=== PATIENT | female | born 1960 | race Caucasian/White ===

== ENCOUNTER → 2019-07-25 | Day surgery (SDC) | payer BC, OTHER ==
[~2019-07-25] MED LIST: CALCIUM + D3 PO; EVENING PRIMROSE OIL PO; FENTANYL CITRATE/PF 100MCG/2 ML INJ ONE; FLAXSEED OIL PO; LIDOCAINE HCL 2% LOCAL INJ 5 ML SDV VIAL INJ ONE; LISINOPRIL10 MG PO; LOSARTAN-HCTZ1 EACH PO; OSTEO BI-FLEX1 EAC2 PO; PANTOPRAZOLE SO40 MG PO; PROPOFOL IV EMULSION 10 MG/ML 50 ML VIAL ONE; TUMERIC PO; VITAMIN B-125000 MCG PO; VITAMIN D-3 PO; VITAMIN E1000 UNI2 PO; ZANTAC150 MG PEG; ZYRTEC10 M3 PO
--- OUTSIDE RECORDS SUMMARY | 2019-07-25 11:03 | XMS REPORT | Clinical Summary ---
Author Author [facility] Address Unknown Phone Unavailable Care Team Providers Care Food Service Tray Attendant Name Role Phone Aliya Soliz MD PCP Allergies Comments Active Allergy Reactions Severity Noted Date Codeine 12/28/2017 Sulfa (Sulfonamide 02/02/2017 Antibiotics) Medications End Date Status Medication Sig Dispensed Refills Start Date Active lisinopril TK 1 T PO D 0 (PRINIVIL,ZESTRIL) 10 mg 7 tablet Active pantoprazole (PROTONIX) TK 1 T PO QD 1 40 MG EC tablet 7 Active azithromycin (ZITHROMAX) 0 250 MG tablet 8 Active albuterol (ACCUNEB) 2.5 VVN TID 0 mg /3 mL (0.083 %) 8 nebulizer solution Active PROAIR HFA 90 INHALE 2 0 mcg/actuation inhaler PUFFS PO Q 6 8 H PRN WHEEZING OR SOB Active benzonatate (TESSALON) 0 200 MG capsule 8 Active cefuroxime (CEFTIN) 500 TK 1 T PO 0 MG tablet BID TAT 8 Active levoFLOXacin (LEVAQUIN) TK 1 T PO QD 0 750 MG tablet 8 Active methylPREDNISolone TK UTD 0 (MEDROL DOSEPAK) 4 mg 8 tablet Active montelukast (SINGULAIR) TK 1 T PO QHS 3 10 mg tablet 8 Active Problems No known active problems Family History Medical History Relation Name Comments Breast cancer Paternal Grandmother Relation Name Status Comments Paternal Grandmother Social History Date Tobacco Use Types Packs/Day Years Used Never Smoker Smokeless Tobacco: Never Used Tobacco Cessation: Counseling Given: No Drinks/Week oz/Week Comments Alcohol Use Yes Sex Assigned at Date Recorded Not on file Industry Job Start Date Occupation Not on file Not on file Not on file Travel End Travel History Travel Start No recent travel history available. Last Filed Vital Signs Not on file Plan of Treatment Health Maintenance Due Date Last Done Comments COLONOSCOPY SCREENING 2010 SHINGLES VACCINES (#1) 2010 INFLUENZA VACCINE 06/15/2019 CERVICAL CANCER SCREENING 02/03/2020 02/02/2017 BREAST CANCER SCREENING 05/12/2020 05/12/2018, 03/01/2017, 02/06/2016, Additional history exists Results Not on fileafter 07/24/2018 Insurance Type Payer Benefit Subscriber ID Effective Phone Address Plan / Dates Group HMO AETNA AETNA xxxxxxxxxx [id number] HMO,POS,EP resent O, [facility] Advance Directives For more information, please contact: [phone] Patient Authorization Manager Explanation Type Date Recorded Advance Directives, 04/19/2017 9:44 AM Living Will and Medical Power of Bill Peddler
[2019-07-25 15:55] VITALS: BP 113/78
== END | disposition home or self-care (01) ==
LOC: OR 10:59
PROVIDERS: ATTEND Internal Medicine Gastroenterology
DX: K21.9 Gastro-esophageal reflux disease without esophagitis (principal); K31.7 Polyp of stomach and duodenum; K29.70 Gastritis, unspecified, without bleeding; K31.89 Other diseases of stomach and duodenum; K44.9 Diaphragmatic hernia without obstruction or gangrene; I10 Essential (primary) hypertension; Z88.6 Allergy status to analgesic agent; Z88.2 Allergy status to sulfonamides; Z68.37 Body mass index [BMI] 37.0-37.9, adult; Z83.79 Family history of other diseases of the digestive system
CPT/HCPCS: 43239; 93005; J2001; J2704; J3010